=== PATIENT | female | born 1965 | race Two or more races ===

== ENCOUNTER 2024-04-09 11:07 | Inpatient (IN) | payer OTHER, MEDICAID ==
[~2024-04-09] VITALS: Ht 165.1 cm; Wt 154.4 kg
[2024-04-09 12:20] LABS: Basophils # (auto) 0.1 10 ^3/uL (0-0.2); Basophils % (auto) 0.7 % (0.0-2.0); Eosinophils # (auto) 0.1 10 ^3/uL (0-0.8); Eosinophils % (auto) 0.9 % (0.0-7.0); Hematocrit 42.3 % (36.0-46.0); Hemoglobin 14.4 g/dL (12.2-16.2); Lymphocytes % (auto) 14.9 % (10.0-50.0); Mean Corpuscular Hemoglobin 30.5 pg (28.0-32.0); Mean Corpuscular Volume 89.6 fL (80.0-100.0); Monocytes # (auto) 0.1 10 ^3/uL (0-1.3); Monocytes % (auto) 1.2 % (0.0-12.0); Neutrophils # (auto) 5.8 10 ^3/uL (1.6-8.6); Neutrophils % (auto) 82.3 % (37.0-80.0); Nucleated Red Blood Cells % 0.1 %; Platelet Count (auto) 248 10^3/uL (140-450); Red Blood Cells 4.72 10^6/uL (4.0-5.20); Red Cell Distribution Width 14.7 % (11.8-14.3)
[2024-04-09 12:25] LABS: Chloride 108 mmol/L (98-107); Potassium 3.6 mmol/L (3.5-5.1); Sodium 142 mmol/L (136-145)
[2024-04-09 12:26] LABS: Anion Gap 10 (5-15); Carbon Dioxide 24 mmol/L (20-30)
[2024-04-09 12:27] LABS: Calcium 9.8 mg/dL (8.7-10.4)
[2024-04-09 12:31] LABS: Blood Urea Nitrogen 14 mg/dL (9-23); Glucose 124 mg/dL (74-106)
[2024-04-09] MEDS: ASPirin 81 mg TAB PO ONE (16:06)
[2024-04-09] MEDS: ATORVASTATIN 20 MG TAB PO ONE (16:06)
[2024-04-09 20:19] VITALS: PULSE 85; RESP 14; O2SAT 98
[2024-04-09] MEDS ORDERED: ONDANSETRON HCL 4 MG/2 ML VIAL IV PRN (21:30)
[2024-04-09] MEDS ORDERED: hydrALAZINE HCL 20 MG/ML VL IV PRN (21:30)
[2024-04-09] MEDS ORDERED: MORPHINE SULFATE INJ 2 MG/ml SYRG IV PRN ×2 (21:30)
[2024-04-09] MEDS ORDERED: DOCUSATE SOD 100 MG CAP PO PRN (21:30)
[2024-04-09] MEDS ORDERED: ACETAMINOPHEN 325 MG TAB PO PRN (21:30)
[2024-04-09] MEDS ORDERED: NITROGLYCERIN 0.4 MG SL TAB SL PRN (21:30)
[2024-04-09] MEDS ORDERED: HYDROcodone-ACET 5/325MG TAB PO PRN (21:30)
[2024-04-10 04:01] VITALS: BP 146/86; PULSE 77; RESP 18; TEMP 99; O2SAT 99
[2024-04-10] MEDS ORDERED: PANT1INJ3 PO (04:22)
[2024-04-10] MEDS ORDERED: HYDR25TA4 PO (04:22)
[2024-04-10] MEDS ORDERED: ROSU40TA81 PO (04:22)
[2024-04-10] MEDS ORDERED: ACE650RS PO (04:22)
[2024-04-10 06:06] LABS: Basophils # (auto) 0 10 ^3/uL (0-0.2); Basophils % (auto) 0.2 % (0.0-2.0); Eosinophils # (auto) 0 10 ^3/uL (0-0.8); Hematocrit 42.3 % (36.0-46.0); Hemoglobin 14.4 g/dL (12.2-16.2); Lymphocytes # (auto) 1.5 10 ^3/uL (0.4-5.4); Mean Corpuscular Hemoglobin 30.5 pg (28.0-32.0); Mean Corpuscular Volume 89.6 fL (80.0-100.0); Monocytes # (auto) 0.3 10 ^3/uL (0-1.3); Monocytes % (auto) 2.9 % (0.0-12.0); Neutrophils # (auto) 8.2 10 ^3/uL (1.6-8.6); Neutrophils % (auto) 81.9 % (37.0-80.0); Platelet Count (auto) 236 10^3/uL (140-450); Red Blood Cells 4.72 10^6/uL (4.0-5.20); Red Cell Distribution Width 14.5 % (11.8-14.3); White Blood Cell 9.9 10^3/uL (4.4-10.8)
[2024-04-10 06:25] LABS: Anion Gap 10 (5-15); Carbon Dioxide 25 mmol/L (20-30); Chloride 107 mmol/L (98-107); Potassium 3.2 mmol/L (3.5-5.1); Sodium 142 mmol/L (136-145)
[2024-04-10 06:27] LABS: Calcium 9.8 mg/dL (8.7-10.4)
[2024-04-10 06:31] LABS: Glucose 124 mg/dL (74-106)
[2024-04-10 06:32] LABS: BUN/Creatinine Ratio 22.2 (10.0-20.0); Blood Urea Nitrogen 18 mg/dL (9-23)
[2024-04-10 08:00] VITALS: PULSE 81
[2024-04-10 09:00] VITALS: BP 149/80; PULSE 88; RESP 19; TEMP 97.7; O2SAT 97
[2024-04-10] MEDS: ATORVASTATIN 20 MG TAB PO SCH (09:55)
[2024-04-10] MEDS: ENOXAPARIN SOD 40 MG/0.4 ML SYRINGE SC SCH (09:56)
[2024-04-10] MEDS: ASPirin 81 mg TAB PO SCH (09:56)
[2024-04-10] MEDS: FAMOTIDINE (10MG/ML) 2ML VL IV SCH (09:56)
[2024-04-10 13:00] VITALS: BP 129/85; PULSE 73; RESP 17; TEMP 97.8; O2SAT 99
[2024-04-10] MEDS ORDERED: ACETAMINOPHEN 325 MG TAB PO PRN (15:45)
[2024-04-10 16:37] VITALS: BP 130/87; PULSE 74; RESP 18; TEMP 97.8; O2SAT 97
[2024-04-10] MEDS ORDERED: METH4PAK PO (17:02)
[2024-04-11] MEDS ORDERED: hydroCHLOROthiazide 25 MG TAB PO SCH (10:00)
== END 2024-04-10 18:40 | disposition home or self-care (01) | DRG 552 ==
LOC: ER 11:07 → TELE 21:31 → TELE-WESTW 04-10 03:39
PROVIDERS: ADMIT Nurse Practitioner Family; ATTEND Nurse Practitioner Family
DX: M50.10 Cervical disc disorder with radiculopathy, unspecified cervical region (principal); E78.5 Hyperlipidemia, unspecified; K21.9 Gastro-esophageal reflux disease without esophagitis; I10 Essential (primary) hypertension; Z88.2 Allergy status to sulfonamides; Z79.1 Long term (current) use of non-steroidal anti-inflammatories (NSAID); Z79.899 Other long term (current) drug therapy
CPT/HCPCS: 36415; 70450; 70551; 72125; 72141; 73130; 80048; 85025; 93005; G0378; J3490

== ENCOUNTER 2025-07-03 04:59 | Emergency (ER) | payer OTHER, MEDICAID ==
[~2025-07-03] VITALS: Ht 165.1 cm; Wt 158.9 kg
[~2025-07-03 04:59] MED LIST: ACE650RS PO; HYDR25TA4 PO; METH4PAK PO; PANT1INJ3 PO; ROSU40TA81 PO
[2025-07-03 05:08] VITALS: BP 119/66; RESP 16; TEMP 97.8; O2SAT 96
--- NOTE | 2025-07-03 06:02 | DVH ---
CHEST RADIOGRAPH INDICATION: left sided rib pain TECHNIQUE: Frontal and lateral view of the chest was obtained COMPARISON: XR CHEST 2 VIEW on DOS: 05/31/25, CR CHEST 2 VIEW on DOS: 04/09/24 FINDINGS: Lines and Tubes: None Lungs: Clear Pleura: No effusion. No pneumothorax. Cardiomediastinal contours: Unremarkable Bones: Unremarkable IMPRESSION: 1. No evidence of acute disease.
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
[2025-07-03] MEDS ORDERED: ACET-1304 PO (06:32)
[2025-07-03] MEDS ORDERED: GABA-1250 PO (06:32)
[2025-07-03 06:49] VITALS: PULSE 76
--- NOTE | 2025-07-03 13:02 | ECG ---
[facility] Test Date: 2025-07-03 Test Time: 06:44:29 Pat Name: JEANIE HAIR Department: ED Room: Gender: F Perforator: BECKI : 1965 Requested By: NEMO JEAN Order Number: [id number] Reading MD: [place] Measurements Intervals [place] Rate: 76 P: 23 MN: 153 QRS: 2 QRSD: 91 T: 12 QT: 405 QTc: 456 Interpretive Statements Sinus rhythm Electronically Signed On 07-04-2025 20:08:48 PST by [place] Please click the below link to view image of tracing.
== END 2025-07-03 07:05 | disposition home or self-care (01) ==
LOC: ER 04:59
DX: S29.011A Strain of muscle and tendon of front wall of thorax, initial encounter (principal); I10 Essential (primary) hypertension; E78.5 Hyperlipidemia, unspecified; Z98.890 Other specified postprocedural states; Z79.899 Other long term (current) drug therapy; Z88.2 Allergy status to sulfonamides; Z88.8 Allergy status to other drugs, medicaments and biological substances; V89.2XXA Person injured in unspecified motor-vehicle accident, traffic, initial encounter; Y93.I9 Activity, other involving external motion; Y92.488 Other paved roadways as the place of occurrence of the external cause; Y99.8 Other external cause status
CPT/HCPCS: 71046; 93005